=== PATIENT | female | born 1985 | race Two or more races ===

== ENCOUNTER 2018-03-13 15:02 | Inpatient (IN) | payer OTHER ==
[~2018-03-13] VITALS: Ht 167.6 cm; Wt 94.0 kg
[~2018-03-13 15:02] MED LIST: PENICILLIN GK 2,500,000 UNITS in DEXTROSE 5% 100 ML IV SCH
[2018-03-13] MEDS ORDERED: MAGNESIUM SULF. PMX 20GM/500ML 500 ML IV SCH (15:04)
[2018-03-13 15:24] VITALS: BP 114/63
[2018-03-13] MEDS ORDERED: LACTATED RINGERS 1,000 ML IVBOLUS ONE (15:30)
[2018-03-13] MEDS ORDERED: PLEASE ENTER HEIGHT AND WEIGHT MC SCH (15:30)
[2018-03-13] MEDS ORDERED: BETAMETHASONE 6 MG/ML, 5ML IM SCH ×2 (15:30→16:30)
[2018-03-13 15:34] LABS: BASOPHILS # (AUTO) 0.03 x10^3/uL (0-0.1); BASOPHILS % (AUTO) 0 % (0-1); EOSINOPHILS # (AUTO) 0.11 x10^3/uL (0-0.4); EOSINOPHILS % (AUTO) 1 % (1-7); LYMPHOCYTES # (AUTO) 1.44 x10^3/uL (1-3.4); LYMPHOCYTES % (AUTO) 11 % (22-44); MD NO; MEAN CORPUSCULAR HEMOGLOBIN 29.5 pg (27.0-34.8); MEAN CORPUSCULAR HGB CONC 34.3 g/dL (32.4-35.8); MEAN PLATELET VOLUME 9.7 fL (7.4-10.4); MONOCYTES # (AUTO) 0.34 x10^3/uL (0.2-0.8); MONOCYTES % (AUTO) 3 % (2-9); NEUTROPHILS % (AUTO) 85 % (42-75); PLATELET COUNT 219 x10^3/uL (130-400); RED BLOOD COUNT 3.96 x10^6/uL (3.82-5.3); RED CELL DISTRIBUTION WIDTH 14.6 % (9.6-15.2)
[2018-03-13 15:44] LABS: ALANINE AMINOTRANSFERASE 12 U/L (12-78); ALBUMIN 2.6 g/dL (3.4-5.0); ANION GAP 10 mmol/L (5-15); CALCIUM 8.2 mg/dL (8.5-10.1); CHLORIDE 104 mmol/L (98-107)
[2018-03-13 15:46] LABS: ALKALINE PHOSPHATASE 80 U/L (45-117); BILIRUBIN,TOTAL 0.4 mg/dL (0.2-1.0); TOTAL PROTEIN 6.7 g/dL (6.4-8.2)
[2018-03-13] MEDS: MAGNESIUM SULF. PMX 20GM/500ML 500 ML IV SCH ×2 (16:12→22:18)
[2018-03-13] MEDS ORDERED: PENICILLIN GK 2,500,000 UNITS in DEXTROSE 5% 100 ML IV ONE (16:30)
[2018-03-13] MEDS: PENICILLIN GK 2,500,000 UNITS in DEXTROSE 5% 100 ML IVPB SCH ×2 (18:44→22:26)
[2018-03-13] MEDS ORDERED: DOCUSATE 100 MG CAPSULE ONE (22:06)
[2018-03-13] MEDS ORDERED: MAGNESIUM SULF. PMX 20GM/500ML 500 ML IV ONE (22:08)
[2018-03-13] MEDS: DOCUSATE 100 MG CAPSULE PO SCH (22:13)
[2018-03-14] MEDS: PENICILLIN GK 2,500,000 UNITS in DEXTROSE 5% 100 ML IVPB SCH ×6 (02:28→17:45)
[2018-03-14] MEDS: LACTATED RINGERS 1,000 ML IV SCH ×2 (03:01→14:57)
[2018-03-14] MEDS ORDERED: MAGNESIUM SULF. PMX 20GM/500ML 500 ML IV ONE ×3 (06:05→21:48)
[2018-03-14] MEDS: MAGNESIUM SULF. PMX 20GM/500ML 500 ML IV SCH ×3 (06:10→21:50)
[2018-03-14 08:00] VITALS: BP 122/77
[2018-03-14] MEDS: PRENATAL VIT/IRON/FA 1 EACH TABLET PO SCH (09:00)
[2018-03-14] MEDS: DOCUSATE 100 MG CAPSULE PO SCH ×2 (09:00→20:11)
[2018-03-14] MEDS ORDERED: BETAMETHASONE 6 MG/ML, 5ML IM SCH (12:27)
[2018-03-14] MEDS ORDERED: DOCUSATE 100 MG CAPSULE ONE (20:10)
[2018-03-15] MEDS ORDERED: MAGNESIUM SULF. PMX 20GM/500ML 500 ML IV ONE (04:29)
[2018-03-15] MEDS: MAGNESIUM SULF. PMX 20GM/500ML 500 ML IV SCH (04:36)
[2018-03-15] MEDS: LACTATED RINGERS 1,000 ML IV SCH (04:36)
[2018-03-15] MEDS: PRENATAL VIT/IRON/FA 1 EACH TABLET PO SCH (09:00)
[2018-03-15] MEDS ORDERED: DOCUSATE 100 MG CAPSULE ONE ×2 (11:57→21:20)
[2018-03-15] MEDS: DOCUSATE 100 MG CAPSULE PO SCH ×2 (11:59→21:22)
[2018-03-16] MEDS: PRENATAL VIT/IRON/FA 1 EACH TABLET PO SCH (09:00)
[2018-03-16] MEDS ORDERED: LACTATED RINGERS 1,000 ML IV SCH (09:00)
[2018-03-16 20:06] LABS: BASOPHILS # (AUTO) 0.02 x10^3/uL (0-0.1); BASOPHILS % (AUTO) 0 % (0-1); EOSINOPHILS # (AUTO) 0.09 x10^3/uL (0-0.4); EOSINOPHILS % (AUTO) 1 % (1-7); LYMPHOCYTES # (AUTO) 2.67 x10^3/uL (1-3.4); LYMPHOCYTES % (AUTO) 23 % (22-44); MD NO; MEAN CORPUSCULAR HEMOGLOBIN 29.5 pg (27.0-34.8); MEAN CORPUSCULAR HGB CONC 34.1 g/dL (32.4-35.8); MEAN CORPUSCULAR VOLUME 86.3 fL (80-100); MEAN PLATELET VOLUME 9.6 fL (7.4-10.4); MONOCYTES # (AUTO) 0.83 x10^3/uL (0.2-0.8); MONOCYTES % (AUTO) 7 % (2-9); NEUTROPHILS # (AUTO) 8.23 x10^3/uL (1.8-6.8); NEUTROPHILS % (AUTO) 70 % (42-75); PLATELET COUNT 215 x10^3/uL (130-400); RED BLOOD COUNT 3.63 x10^6/uL (3.82-5.3); RED CELL DISTRIBUTION WIDTH 14.7 % (9.6-15.2)
[2018-03-16] MEDS: DOCUSATE 100 MG CAPSULE PO SCH (21:00)
[2018-03-16 21:19] VITALS: BP 132/81
[2018-03-17] MEDS ORDERED: DOCUSATE 100 MG CAPSULE ONE ×2 (08:20→20:28)
[2018-03-17] MEDS: DOCUSATE 100 MG CAPSULE PO SCH ×3 (08:28→21:00)
[2018-03-17] MEDS: PRENATAL VIT/IRON/FA 1 EACH TABLET PO SCH (09:00)
[2018-03-17 19:30] VITALS: BP 120/73
[2018-03-17] MEDS ORDERED: PRENATAL VIT/IRON/FA 1 EACH TABLET ONE (20:28)
[2018-03-17] MEDS: SODIUM CHLORIDE FLUSH 3ML SYRINGE IVF SCH ×2 (21:00→21:32)
[2018-03-18 06:19] VITALS: BP 107/68
[2018-03-18] MEDS: DOCUSATE 100 MG CAPSULE PO SCH (09:00)
[2018-03-18] MEDS ORDERED: PREN1TAB60 PO (19:28)
== END 2018-03-18 20:12 | disposition home or self-care (01) | DRG 778 ==
LOC: LDIP 15:02
PROVIDERS: ADMIT Obstetrics & Gynecology Maternal & Fetal Medicine; ATTEND Obstetrics & Gynecology Maternal & Fetal Medicine
DX: O60.03 Preterm labor without delivery, third trimester (principal); Z3A.30 30 weeks gestation of pregnancy; Z92.241 Personal history of systemic steroid therapy
CPT/HCPCS: 36415; 76805; 80053; 83735; 85025; 85384; 86850; 86900; J0702; J2540; J3475; J7120

== ENCOUNTER 2018-03-27 06:00 | Observation (INO) | payer OTHER ==
[~2018-03-27] VITALS: Ht 167.6 cm; Wt 92.0 kg
[~2018-03-27 06:00] MED LIST changes: -PENICILLIN GK 2,500,000 UNITS in DEXTROSE 5% 100 ML IV SCH; +PREN1TAB60 PO
[2018-03-27 06:26] LABS: MICROSCOPIC INDICATED
[2018-03-27 06:27] VITALS: BP 111/74
[2018-03-27 07:29] VITALS: BP 110/69
== END 2018-03-27 11:11 | disposition home or self-care (01) ==
LOC: LDOP 06:00 → LDIP 10:27
PROVIDERS: ADMIT Obstetrics & Gynecology Maternal & Fetal Medicine; ATTEND Obstetrics & Gynecology Maternal & Fetal Medicine
DX: O26.893 Other specified pregnancy related conditions, third trimester (principal); R10.9 Unspecified abdominal pain; Z3A.31 31 weeks gestation of pregnancy
CPT/HCPCS: 59025; 81001; 87077; 87086; G0378; 87186

== ENCOUNTER 2018-04-07 05:04 | Inpatient (IN) | payer OTHER ==
[~2018-04-07] VITALS: Ht 167.6 cm; Wt 95.0 kg
[2018-04-07] MEDS: AMPICILLIN 2 GM in SODIUM CHLORIDE 0.9% 100 ML IV SCH ×3 (09:00→21:03)
[2018-04-07] MEDS ORDERED: MAGNESIUM SULF. PMX 20GM/500ML 500 ML IV ONE ×2 (13:24→19:21)
[2018-04-07] MEDS: MAGNESIUM SULF. PMX 20GM/500ML 500 ML IV SCH ×2 (13:28→19:40)
[2018-04-07] MEDS: LACTATED RINGERS 1,000 ML IV SCH ×2 (15:30→19:38)
[2018-04-07] MEDS ORDERED: BETAMETHASONE 6 MG/ML, 5ML IM ONE (19:31)
[2018-04-07] MEDS: BETAMETHASONE 6 MG/ML, 5ML IM SCH (19:38)
[2018-04-07 22:33] VITALS: BP 111/56
[2018-04-08] MEDS: LACTATED RINGERS 1,000 ML IV SCH ×2 (01:30→20:34)
[2018-04-08] MEDS: AMPICILLIN 2 GM in SODIUM CHLORIDE 0.9% 100 ML IV SCH ×3 (02:52→15:11)
[2018-04-08 02:55] VITALS: BP 125/72
[2018-04-08] MEDS ORDERED: MAGNESIUM SULF. PMX 20GM/500ML 500 ML IV ONE ×2 (02:58→10:42)
[2018-04-08] MEDS: MAGNESIUM SULF. PMX 20GM/500ML 500 ML IV SCH ×2 (03:00→10:45)
[2018-04-08] MEDS ORDERED: DOCUSATE 100 MG CAPSULE PO PRN (05:00)
[2018-04-08] MEDS ORDERED: CEFAZOLIN PMX 1GM/50ML 50 ML ONE (08:24)
[2018-04-08] MEDS: CEFAZOLIN PMX 1GM/50ML 50 ML IV SCH ×2 (08:29→15:56)
[2018-04-08] MEDS ORDERED: AZITHROMYCIN 500 MG TABLET PO SCH (09:00)
[2018-04-08] MEDS ORDERED: PRENATAL VIT/IRON/FA 1 EACH TABLET PO SCH (09:00)
[2018-04-08] MEDS ORDERED: PRENATAL VIT/IRON/FA 1 EACH TABLET ONE (09:23)
[2018-04-08] MEDS ORDERED: D5%-LACTATED RINGERS 1,000 ML IV SCH (16:30)
[2018-04-08] MEDS ORDERED: OXYTOCIN 30U/ 0.9% NaCL 500ML 500 ML IV SCH (18:19)
[2018-04-08] MEDS ORDERED: LACTATED RINGERS 1,000 ML IV SCH ×3 (18:19→20:34)
[2018-04-08] MEDS ORDERED: NEWBORN KIT ONE (18:24)
[2018-04-08] MEDS ORDERED: METOCLOPRAMIDE 5 MG/ML, 2ML IV ONE (18:30)
[2018-04-08] MEDS ORDERED: LACTATED RINGERS 1,000 ML IVBOLUS ONE (18:30)
[2018-04-08] MEDS ORDERED: SODIUM CITRATE/CITRIC ACID 30 ML UDC PO ONE (18:30)
[2018-04-08] MEDS ORDERED: SODIUM CITRATE/CITRIC ACID 30 ML UDC ONE (18:33)
[2018-04-08] MEDS ORDERED: METOCLOPRAMIDE 5 MG/ML, 2ML ONE (18:34)
[2018-04-08] MEDS ORDERED: morphine SULFATE/PF 1 MG/ML, 10ML ONE (18:40)
[2018-04-08 18:43] LABS: BASOPHILS # (AUTO) 0.05 x10^3/uL (0-0.1); BASOPHILS % (AUTO) 0 % (0-1); EOSINOPHILS # (AUTO) 0.02 x10^3/uL (0-0.4); EOSINOPHILS % (AUTO) 0 % (1-7); LYMPHOCYTES # (AUTO) 1.52 x10^3/uL (1-3.4); LYMPHOCYTES % (AUTO) 11 % (22-44); MD NO; MEAN CORPUSCULAR HEMOGLOBIN 29.2 pg (27.0-34.8); MEAN CORPUSCULAR VOLUME 85.8 fL (80-100); MEAN PLATELET VOLUME 9.5 fL (7.4-10.4); MONOCYTES # (AUTO) 0.65 x10^3/uL (0.2-0.8); MONOCYTES % (AUTO) 5 % (2-9); NEUTROPHILS # (AUTO) 11.74 x10^3/uL (1.8-6.8); NEUTROPHILS % (AUTO) 84 % (42-75); PLATELET COUNT 225 x10^3/uL (130-400); RED BLOOD COUNT 3.87 x10^6/uL (3.82-5.3)
[2018-04-08] MEDS ORDERED: AZITHROMYCIN 500 MG in SODIUM CHLORIDE 0.9% 250 ML IV ONE (19:00)
[2018-04-08] MEDS: BETAMETHASONE 6 MG/ML, 5ML IM SCH (19:30)
[2018-04-08] MEDS ORDERED: OXYTOCIN 10 UNITS/ML, 1ML ONE (19:44)
[2018-04-08] MEDS ORDERED: EPHEDRINE 50 MG/ML, 1ML ONE (19:44)
[2018-04-08] MEDS ORDERED: PHENYLEPHRINE 10 MG/ML ONE (19:44)
[2018-04-08] MEDS ORDERED: ONDANSETRON 2MG/ML, 2ML ONE (19:44)
[2018-04-08] MEDS ORDERED: WATER-INJECTION,STERILE 10 ML IV ONE (19:44)
[2018-04-08] MEDS ORDERED: CEFAZOLIN 1,000 MG ONE (19:44)
[2018-04-08] MEDS: OXYTOCIN 30U/ 0.9% NaCL 500ML 500 ML IV SCH (20:34)
[2018-04-08] MEDS ORDERED: OXYTOCIN 30U/ 0.9% NaCL 500ML 500 ML ONE (20:53)
[2018-04-08] MEDS ORDERED: MEASLES,MUMPS&RUBELLA VACC/PF 0.5 ML SQ-VACC PRN (21:00)
[2018-04-08] MEDS ORDERED: METHYLERGONOVINE 0.2 MG/ML IM PRN (21:00)
[2018-04-08] MEDS ORDERED: ACETAMINOPHEN 325 MG TABLET PO PRN (21:00)
[2018-04-08] MEDS ORDERED: ONDANSETRON 2MG/ML, 2ML IV PRN (21:00)
[2018-04-08] MEDS ORDERED: BISACODYL 10 MG SUPP PR PRN (21:00)
[2018-04-08] MEDS ORDERED: MISOPROSTOL 200 MCG TABLET PO PRN (21:00)
[2018-04-08] MEDS ORDERED: OXYcodone IR 5MG TABLET PO PRN (21:00)
[2018-04-08] MEDS ORDERED: OXYcodone/APAP 5/325MG TABLET ONE (21:33)
[2018-04-08] MEDS ORDERED: IBUPROFEN 600 MG TABLET ONE (21:34)
[2018-04-08] MEDS: IBUPROFEN 600 MG TABLET PO PRN (21:36)
[2018-04-08] MEDS ORDERED: OXYcodone IR 5MG TABLET ONE (21:39)
[2018-04-08 22:30] VITALS: BP 112/75
[2018-04-08 23:58] VITALS: BP 110/68
[2018-04-09] MEDS: IBUPROFEN 600 MG TABLET PO PRN ×4 (04:18→23:08)
[2018-04-09 04:30] VITALS: BP 115/74
[2018-04-09 05:36] LABS: BASOPHILS # (AUTO) 0.04 x10^3/uL (0-0.1); BASOPHILS % (AUTO) 0 % (0-1); EOSINOPHILS # (AUTO) 0.04 x10^3/uL (0-0.4); EOSINOPHILS % (AUTO) 0 % (1-7); LYMPHOCYTES # (AUTO) 1.71 x10^3/uL (1-3.4); LYMPHOCYTES % (AUTO) 12 % (22-44); MD NO; MEAN CORPUSCULAR HEMOGLOBIN 29.7 pg (27.0-34.8); MEAN CORPUSCULAR HGB CONC 34.7 g/dL (32.4-35.8); MEAN CORPUSCULAR VOLUME 85.6 fL (80-100); MEAN PLATELET VOLUME 9.7 fL (7.4-10.4); MONOCYTES # (AUTO) 0.66 x10^3/uL (0.2-0.8); MONOCYTES % (AUTO) 5 % (2-9); NEUTROPHILS # (AUTO) 11.37 x10^3/uL (1.8-6.8); NEUTROPHILS % (AUTO) 82 % (42-75); PLATELET COUNT 189 x10^3/uL (130-400); RED BLOOD COUNT 2.96 x10^6/uL (3.82-5.3); RED CELL DISTRIBUTION WIDTH 15.9 % (9.6-15.2)
[2018-04-09] MEDS: LACTATED RINGERS 1,000 ML IV SCH (05:36)
[2018-04-09] MEDS: OXYTOCIN 30U/ 0.9% NaCL 500ML 500 ML IV SCH (06:34)
[2018-04-09 07:59] VITALS: BP 107/70
[2018-04-09] MEDS: DOCUSATE 100 MG CAPSULE PO PRN ×2 (10:26→20:22)
[2018-04-09] MEDS: PRENATAL VIT/IRON/FA 1 EACH TABLET PO SCH (10:26)
[2018-04-09 12:03] VITALS: BP 104/71
[2018-04-09 16:00] VITALS: BP 117/80
[2018-04-09 19:20] VITALS: BP 101/68
[2018-04-09] MEDS: OXYcodone/APAP 5/325MG TABLET PO PRN (20:22)
[2018-04-10] MEDS: IBUPROFEN 600 MG TABLET PO PRN ×3 (06:23→19:25)
[2018-04-10 07:25] VITALS: BP 101/83
[2018-04-10] MEDS: DOCUSATE 100 MG CAPSULE PO PRN ×2 (07:41→19:25)
[2018-04-10] MEDS: FERROUS GLUCONATE 324 MG TABLET PO SCH (07:41)
[2018-04-10] MEDS: PRENATAL VIT/IRON/FA 1 EACH TABLET PO SCH (07:42)
[2018-04-10] MEDS: OXYcodone/APAP 5/325MG TABLET PO PRN ×2 (15:41→22:41)
[2018-04-11] MEDS: IBUPROFEN 600 MG TABLET PO PRN ×2 (02:10→08:14)
[2018-04-11] MEDS: FERROUS GLUCONATE 324 MG TABLET PO SCH (08:13)
[2018-04-11] MEDS: PRENATAL VIT/IRON/FA 1 EACH TABLET PO SCH (08:15)
[2018-04-11] MEDS ORDERED: IBUP-1222 PO (09:50)
[2018-04-11] MEDS ORDERED: DOCU-131 PO (09:51)
[2018-04-11] MEDS ORDERED: FERR324T8 PO (09:52)
[2018-04-11] MEDS ORDERED: CEPH-368 PO (09:53)
[2018-04-11] MEDS ORDERED: OXYC-302 PO (09:55)
[2018-04-11] MEDS ORDERED: ACET325T26 PO (09:56)
== END 2018-04-11 13:20 | disposition home or self-care (01) | DRG 765 ==
LOC: 2NE 05:04 → 2NW 04-08 22:04
PROVIDERS: ADMIT Obstetrics & Gynecology Maternal & Fetal Medicine; ATTEND Obstetrics & Gynecology Maternal & Fetal Medicine
PROC: 10D00Z0 Extraction of Products of Conception, High, Open Approach (ICD-10-PCS; principal; 2018-04-08)
PROC: 0UB70ZZ Excision of Bilateral Fallopian Tubes, Open Approach (ICD-10-PCS; 2018-04-08)
DX: O42.913 Preterm premature rupture of membranes, unspecified as to length of time between rupture and onset of labor, third trimester (principal); O60.14X0 Preterm labor third trimester with preterm delivery third trimester, not applicable or unspecified; Z37.0 Single live birth; O32.8XX0 Maternal care for other malpresentation of fetus, not applicable or unspecified; Z3A.33 33 weeks gestation of pregnancy; Z30.2 Encounter for sterilization; Z91.012 Allergy to eggs; Z91.011 Allergy to milk products; Z91.018 Allergy to other foods
CPT/HCPCS: 36415; J7121; 76815; 82330; 82803; 82947; 83735; 84132; 84295; 85014; 85025; 86850; 86900; 88302; J0290; J0456; J0690; J0702; J2274; J2405; J2370; J2590; J2765; J3475; J7050; J7120